=== PATIENT | female | born 1985 | race Caucasian/White ===

== ENCOUNTER 2020-02-13 09:25 | Emergency (ER) | payer MEDICAID ==
[~2020-02-13] VITALS: Ht 170.2 cm; Wt 75.4 kg
[~2020-02-13 09:25] MED LIST: [UNRECOGNIZED DRUG - CODE] TP
[2020-02-13 09:30] VITALS: BP 122/68
[2020-02-13] MEDS ORDERED: CLIN-97 PO (10:04)
== END 2020-02-13 10:16 | disposition home or self-care (01) ==
LOC: ER 09:25
DX: K04.7 Periapical abscess without sinus (principal); F41.9 Anxiety disorder, unspecified; F12.90 Cannabis use, unspecified, uncomplicated; Z72.89 Other problems related to lifestyle; Z56.0 Unemployment, unspecified; Z88.0 Allergy status to penicillin; Z79.899 Other long term (current) drug therapy
CPT/HCPCS: 99283

== ENCOUNTER 2023-06-06 10:23 | Emergency (ER) | payer MEDICAID, OTHER ==
[~2023-06-06] VITALS: Ht 162.6 cm; Wt 88.1 kg
[~2023-06-06 10:23] MED LIST changes: +CLIN-97 PO
[2023-06-06 10:32] VITALS: BP 117/76; PULSE 84; RESP 18; TEMP 97.5; O2SAT 99
[2023-06-06] MEDS ORDERED: AZIT-164 PO (10:41)
== END 2023-06-06 11:21 | disposition home or self-care (01) ==
LOC: ER 10:24
DX: J02.9 Acute pharyngitis, unspecified (principal); J40 Bronchitis, not specified as acute or chronic; F12.90 Cannabis use, unspecified, uncomplicated; Z88.0 Allergy status to penicillin; Z88.1 Allergy status to other antibiotic agents; Z79.2 Long term (current) use of antibiotics; Z79.899 Other long term (current) drug therapy
CPT/HCPCS: 99283

== ENCOUNTER 2024-12-10 16:07 | Emergency (ER) | payer OTHER ==
[~2024-12-10] VITALS: Ht 167.6 cm; Wt 90.8 kg
--- NOTE | 2024-12-10 17:20 | Physician Documentation ---
History of Present Illness ~ Chief Complaint: Laceration Stated Complaint: LIP LAC Time Seen by MD: 16:59 Primary Medical Doctor: [facility] Patient is seen today with complaints of a laceration on her lip lower lip just prior to arrival. Patient states she was trying to open a refrigerator door or peel the drinking off the door and it swung open and hit her in the lip. Patient has no other concern or complaint at this time and denies any headache or loss of consciousness. Medication Reconciliation Allergies: Coded Allergies: Penicillins (Verified Allergy, Intermediate, YEAST, 12/10/24) Uncoded Allergies: AMOXICILIIN (Allergy, Intermediate, YEAST, 09/03/12) Scheduled Clindamycin HCL* (Clindamycin HCL*), 1 CAP PO Q6H Hc Acetate/Pramoxine Hcl* (Epifoam Foam*), 1 APPLIC TP DAILY Past Medical History Past Medical History: Anxiety Past Surgical History: no surgical history Alcohol Use: Sober Drug Use: marijuana Lives with: Family Lives In: Home Occupation: unemployed Review of Systems Constitutional: Denies: chills, fever, weakness Eyes: Denies: pain, blurred vision ENT: Denies: ear pain, nose pain, throat pain, mouth pain Respiratory: Denies: cough, shortness of breath Cardiovascular: Denies: chest pain, palpitations Gastrointestinal: Denies: abdominal pain, nausea, vomiting Genitourinary: Denies: burning, dysuria Female Genitalia: Denies: vaginal discharge, pelvic pain Neurological: Denies: headache, dizziness Musculoskeletal: Denies: pain, swelling Integumentary: Denies: rash, lesions Allergic/Immunologic: Denies: hives, itching Hematologic/Lymphatic: Denies: no symptoms reported Psychiatric: Denies: depression, anxiety Physical Exam Vital Signs: Temperature: 97.6, Source: Temporal, Heart Rate: 71, Respiratory Rate: 18, BP: 145/78, Pulse Oximetry: 99, Weight: 90.800 Physical Exam General: Awake and Alert, no acute distress. HEENT: Conjunctiva pink, Sclera clear, Mucus Membranes moist. Neck: Supple without masses and tenderness. Resp: Unlabored. Lungs clear to auscultation bilaterally. Heart: Regular Rate and rhythm, normal S1 and S2 without murmur, rub or gallop. Extremities: No cyanosis,clubbing or edema. Skin: Patient on exam does have a 1.5 cm laceration of the lower lip that does involve the josefina border. There is no active bleeding. There is mild swelling soft tissue swelling surrounding. No sign of infection and no purulent drainage. Procedures Laceration/Wound Repair Laceration : Procedure Note Procedure note: 5 cc of lidocaine 1% with epinephrine was used to achieve local anesthesia of the lower lip laceration 1.5 cm. Wound was irrigated copiously wi th normal saline. Patient tolerated well. Five simple sutures placed with 5-0 Vicryl absorbable suture to achieve closure taking precise and extra special care to align the josefina border. Wound was approximated well. Progress Results/Orders Results/Orders Completed Orders - KARINA WALTER PAC Lidocaine 1% W/Epi 1:100,000 (Xylocaine (12/10/24 17:14) Vital Signs 12/10/24 16:11 Temp 97.6 Pulse 71 Resp 18 B/P (MAP) 145/78 Pulse Ox 99 Medical Decision Making Findings Patient is seen today with complaints of a laceration on her lip lower lip just prior to arrival. Patient states she was trying to open a refrigerator door or peel the drinking off the door and it swung open and hit her in the lip. Patient has no other concern or complaint at this time and denies any headache or loss of consciousness. Lower lip laceration was sutured today by myself using 5-0 Vicryl absorbable suture using five simple sutures. Patient will not need to follow up for suture removal. Patient will follow up with primary care in 7-10 days for wound checked. Patient will return to ED with any worsening, concerning or changing symptoms. Departure Disposition: 01 HOME / SELF CARE / HOMELESS Impression: Primary Impression: Laceration Additional Impression: Laceration of vermilion border of lower lip without complication Qualified Codes: S01.511A - Laceration without foreign body of lip, initial encounter Condition: Improved Discharge Instructions: Laceration Care, Adult, [id number]-Ctdy Additional Instructions: Lower lip laceration was sutured today by myself using 5-0 Vicryl absorbable suture using five simple sutures. Patient will not need to follow up for suture removal. Patient will follow up with primary care in 7-10 days for wound checked. Patient will return to ED with any worsening, concerning or changing symptoms. Referrals: NO PRIMARY CARE PROVIDER (PCP) Signature Scribe Signature: No scribe Attestation: No scribe KARINA WALTER PAC Dec 10, 2024 17:20
[2024-12-10] MEDS: LIDOcaine 1% W/epiNEPHrine 1:100,000 20ml vial SQ STA (17:31)
[2024-12-10 18:45] VITALS: BP 142/76; PULSE 70; RESP 18; TEMP 98.6; O2SAT 99
== END 2024-12-10 18:46 | disposition home or self-care (01) ==
LOC: ER 16:08
DX: S01.511A Laceration without foreign body of lip, initial encounter (principal); F41.9 Anxiety disorder, unspecified; F12.90 Cannabis use, unspecified, uncomplicated; F10.90 Alcohol use, unspecified, uncomplicated; Z88.0 Allergy status to penicillin; W22.09XA Striking against other stationary object, initial encounter; Y93.89 Activity, other specified; Y92.89 Other specified places as the place of occurrence of the external cause; Y99.8 Other external cause status; Y90.9 Presence of alcohol in blood, level not specified
CPT/HCPCS: 40650; 99284; J7030; A6449

== ENCOUNTER 2025-02-21 14:38 | Emergency (ER) | payer OTHER ==
[~2025-02-21] VITALS: Ht 167.6 cm; Wt 86.4 kg
[~2025-02-21 14:38] MED LIST changes: +CLIN-224 PO; -CLIN-97 PO
[2025-02-21 14:52] VITALS: BP 141/83; PULSE 82; RESP 16; O2SAT 99
--- NOTE | 2025-02-21 15:05 | ELECTROCARDIOGRAPH REPORT ---
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
--- NOTE | 2025-02-21 15:20 | Physician Documentation ---
History of Present Illness ~ Chief Complaint: Palpitations Stated Complaint: HEART PALP Time Seen by MD: 15:15 Primary Medical Doctor: [facility] HPI This is a very pleasant 39-year-old female presents to the ED with a complaint of heart palpitations and fluttering which has increased in severity over the last month. Denies any chest pain and denies any shortness of breath. Denies any cardiac history but does report increased anxiety and stress. 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 Denies any alcohol use states he drinks one cup of coffee a day does have difficulty sleeping secondary to her anxiety. Medication Reconciliation Allergies: Coded Allergies: Penicillins (Verified Allergy, Intermediate, YEAST, 12/10/24) Uncoded Allergies: AMOXICILIIN (Allergy, Intermediate, YEAST, 09/03/12) Scheduled Clindamycin HCL* (Clindamycin HCL*), 1 CAP PO Q6H Hc Acetate/Pramoxine Hcl* (Epifoam Foam*), 1 APPLIC TP DAILY Hydroxyzine Hcl* (Atarax*), 1 TAB PO Q12H Past Medical History Past Medical History: Anxiety Past Surgical History: no surgical history Alcohol Use: Sober Drug Use: marijuana Lives with: Family Lives In: Home Occupation: unemployed Review of Systems All Other Systems at this time: Reviewed and Negative ROS As stated above in the HPI, otherwise all systems are reviewed and negative. Physical Exam Vital Signs: Temperature: 97.5, Source: Oral, Heart Rate: 82, Respiratory Rate: 16, BP: 141/83, Pulse Oximetry: 99, Weight: 86.360 Oxygen Flow Rate: 0 Physical Exam General: Alert, no apparent distress. Respiratory: Lungs clear, no respiratory distress. Chest: No accessory muscle use. Cardiovascular: Regular rate and rhythm, no murmurs. Neurologic: Oriented x4. Psychiatric: Normal mood and affect. Skin: Normal color, warm and dry. No edema, no ecchymosis. Progress Results/Orders Results/Orders Completed Orders - HOMER PITTS NP Electrocardiogram (02/21/25 ) Vital Signs 02/21/25 02/21/25 14:52 16:02 Temp 97.5 97.5 Pulse 82 Resp 16 B/P (MAP) 141/83 Pulse Ox 99 O2 Flow Rate 0 Medical Decision Making Findings Spoke at length with this patient regarding her ECG which was reassuring. He had discussed with the me all of her life stressors which are extensive. I explained to her that anxiety and stress can exacerbate and induced palpitations . He is at 1st resistant to this notion however ultimately she agreed that that is a possibility of the that could have been attributing factor to her presentation today. Agreed to attempt increased cardiovascular exercise to reduce stress and anxiety. I offered hydroxyzine for medical management she agreed to. Also advised her to obtain some counseling to work through her anxiety and stress Differential Dx:Considerations: Include: angina / SC, atrial dysrhythmia, atrial fibrillation, atrial flutter, MAT, PACs, PSVT, sinus tachycardia, WPW, 1st degree AV block, 2nd degree AVB-type 1, 2nd degree AVB-type 2, 3rd degree AV block, PVCs, torsades de pointes, ventricular fibrillation, ventricular tachycardia, other Departure Disposition: 01 HOME / SELF CARE / HOMELESS Impression: Primary Impression: Palpitations Condition: Stable Discharge Instructions: Palpitations, Nuil-sy-Rafy Additional Instructions: As discussed take medication as prescribed in attempt to have better self-care practices. Stand that your life circumstances are stress inducing. You may also consider getting some counseling session to work through your feelings Referrals: NO PRIMARY CARE PROVIDER (PCP) Prescriptions Hydroxyzine Hcl* (Atarax*) 25 Mg Tablet 1 TAB PO Q12H for anxiety for 30 Days, #60 TAB Prov: HOMER PITTS NP 02/21/25 Education Educated: Patient Signature Scribe Signature: c Attestation: Scribed for Homer Pitts Trial Manager by Homer Ferreira NP . 02/21/25 18:44 HOMER PITTS NP Feb 21, 2025 15:20
[2025-02-21] MEDS ORDERED: HYDR-3686 PO (15:43)
[2025-02-21 16:02] VITALS: TEMP 97.5
== END 2025-02-21 16:03 | disposition home or self-care (01) ==
LOC: ER 14:38
DX: R00.2 Palpitations (principal); F41.9 Anxiety disorder, unspecified; F12.90 Cannabis use, unspecified, uncomplicated; Z88.0 Allergy status to penicillin; Z79.899 Other long term (current) drug therapy; Z56.0 Unemployment, unspecified
CPT/HCPCS: 93005; 99283